=== PATIENT | male | born 1990 | race Caucasian/White ===

== ENCOUNTER 2017-01-12 20:07 | Emergency (ER) | payer SELFPAY ==
[2017-01-12 20:18] VITALS: BP 149/97
[2017-01-12] MEDS ORDERED: NACL 0.9% 1000 ML 1,000 ML ONE (20:23)
[2017-01-12] MEDS ORDERED: NACL 0.9% 1000 ML 1,000 ML IV ONE ×2 (20:36→22:53)
--- NOTE | 2017-01-12 20:55 | Emergency Department Report ---
Eye Injury/Foreign Body - HPI Duration: Today Severity: Mild Tetanus Status: Up to Date Eye Symptoms: Eye Pain: No, Blurred Vision: Yes, Eye Redness: Yes, Grinding/ Hammering Metal: No, Used Eye Protection: No, Contact Lens Use: No, Recalls Injury: No, Photophobia: No Other History: She is a 26-year-old male who presents to ED complaining of chemical spill to his eye. Patient states he was at work earlier today around noon when he felt something drop into left eye patient at that time that it was slight and did not do anything. Patient states around 3 PM he started to feel burning and fuzziness in his left eye. So he came to the ED. He denies loss of vision but admits blurry vision with admits to rare glasses on a daily basis. No contacts ED Review of Systems ROS: Stated complaint: TOXIC SOLUTION IN LEFT EYE Other details as noted in HPI Constitutional: denies: chills, fever Eyes: vision change (Jerman vision on the left eye). denies: eye pain, eye discharge ENT: denies: ear pain, throat pain, dental pain, hearing loss, congestion Respiratory: denies: cough, shortness of breath, wheezing Cardiovascular: denies: chest pain, palpitations Endocrine: no symptoms reported Gastrointestinal: denies: abdominal pain, nausea, diarrhea Genitourinary: denies: urgency, dysuria Musculoskeletal: denies: back pain, joint swelling, arthralgia Skin: denies: rash, lesions Neurological: denies: headache, weakness, paresthesias Psychiatric: denies: anxiety, depression Hematological/Lymphatic: denies: easy bleeding, easy bruising ED Past Medical Hx - Past Medical History Previous Medical History?: Yes Hx Asthma: Yes - Surgical History Past Surgical History?: Yes Additional Surgical History: left knee - Social History Smoking Status: Never Smoker Substance Use Type: Marijuana - Medications Home Medications: Home Medications Medication Instructions Recorded Confirmed Last Taken Type Polymyxin B Sulf/Trimethoprim 1 drop OP TID #10 ml 01/12/17 Unknown Rx [Polytrim Eye Drops [id number]/0.1%] Eye Injury Exam - Exam General: Patient is alert and oriented 3. Mild distress from her burning sensation in eye. Vital signs noted. No distress. Alert and acting appropriately. Visual acuity test done. Eye exam: EOMI, PERRLA, left cornea appears cloudy, conjunctiva and sclera are erythematous and inflamed. Nonedematous, no active bleeding. Vision intact. No corneal abrasion, nontender to palpation ED Course Vital Signs 01/12/17 20:12 Temperature 97.8 F Pulse Rate 95 H Respiratory 20 Rate Blood Pressure 149/97 O2 Sat by Pulse 98 Oximetry - Consultations Consultation #1: Poison control contacted. Spoke with [place] specialisist specialist as stated based on the patient's knowledge on what chemical was got into the eyes . Patient will need an opthalmologist consult outpatient 01/12/17 21:49 01/12/17 22:20 ED Medical Decision Making - Medical Decision Making 26 male presents with chemical exposure to the left eye ED course: Patient has been irrigated with 1 L normal saline. PH of the eye after 1 L of normal saline 6.0 Started another 1 L bag of normal saline flush. Her second bag of saline/pH of the returns back to normal 7 Contacted poison control who suggested opthalmologist consult. Discussed this with patient and significant other. Discussed with patient to follow-up with nuclear weapons specialist as prescribed as referred by vital signs are normal patient is in no acute distress Discussed with patient antibiotic treatment for home prevent infection. Vital signs are normal patient is a no acute distress. He reports this is much better after flushing Discussed continued flushing as needed Critical care attestation.: If time is entered above; I have spent that time in minutes in the direct care of this critically ill patient, excluding procedure time. ED Disposition Clinical Impression: Chemical exposure of eye Disposition: DC-01 TO HOME OR SELFCARE Is pt being admited?: No Does the pt Need Aspirin: No Condition: Stable Instructions: Chemical Eye Gonzalez (ED), Conjunctivitis (ED) Additional Instructions: Continue to use saline/as needed at home. follow up with workday senior associate. Prescriptions: Polymyxin B Sulf/Trimethoprim [Polytrim Eye Drops [id number]/0.1%] 1 drop OP TID #10 ml Referrals: PRIMARY CARE, [Primary Care Provider] - 3-5 Days ANDRE JOHNSON MD [Staff Physician] - 3-5 Days [facility] [Outside] - 3-5 Days Forms: Accompanied Note, Work/School Release Form(ED) Time of Disposition: 22:15
== END 2017-01-12 22:55 | disposition home or self-care (01) ==
LOC: ED 20:07
DX: H53.8 Other visual disturbances (principal); Z77.098 Contact with and (suspected) exposure to other hazardous, chiefly nonmedicinal, chemicals; J45.909 Unspecified asthma, uncomplicated; F12.90 Cannabis use, unspecified, uncomplicated; X58.XXXA Exposure to other specified factors, initial encounter; Y93.89 Activity, other specified; Y99.9 Unspecified external cause status; Y92.89 Other specified places as the place of occurrence of the external cause
CPT/HCPCS: 96360; 96361; 99283; J7030